=== PATIENT | female | born 1945 | race Caucasian/White ===

== ENCOUNTER 2017-08-08 10:08 | Emergency (ER) | payer OTHER, BC ==
[~2017-08-08] VITALS: Ht 175.3 cm; Wt 74.1 kg
[2017-08-08 10:59] LABS: HEMATOCRIT 33.6 % (36.0-46.0); MCH 29.3 PG (29.0-34.0); MCV 88.7 FL (83-99); MEAN PLAT.VOLUME 11.6 uM^3 (9.5-12.4); PLATELET COUNT 288 K/uL (156-360); RBC DIS.WIDTH-CV 12.1 % (11.8-14.6); RBC DIS.WIDTH-SD 39.3 % (39-53); RED BLOOD COUNT 3.79 M/uL (3.80-5.20); WHITE BLOOD COUNT 10.6 K/uL (4.1-10.2)
[2017-08-08 11:05] LABS: PROTHROMBIN TIME 58.2 SEC (10.2-12.9)
[2017-08-08 11:09] LABS: CHLORIDE 109 mEq/L (99-109); POTASSIUM 4.1 mEq/L (3.7-5.4); SODIUM 141 mEq/L (136-147)
[2017-08-08 11:11] LABS: GLUCOSE 112 mg/dL (70-99)
[2017-08-08 11:12] LABS: ANION GAP 9 MEQ/L (2-14)
[2017-08-08 11:15] LABS: GFR ESTIMATE (CALCULATED) > 59 mL/min/
[2017-08-08 11:16] LABS: UREA NITROGEN (BUN) 15 mg/dL (9-23)
[2017-08-08] MEDS ORDERED: COUMADIN2.5 MG PO (12:34)
[2017-08-08 13:55] VITALS: BP 112/70
== END 2017-08-08 13:57 | disposition home or self-care (01) ==
LOC: EME 10:08
DX: N93.9 Abnormal uterine and vaginal bleeding, unspecified (principal); T45.515A Adverse effect of anticoagulants, initial encounter; Z79.01 Long term (current) use of anticoagulants
CPT/HCPCS: 74176; 80048; 85027; 85610; 86850; 86900; 86901; 99281; 99284

== ENCOUNTER 2017-08-22 04:59 | Emergency (ER) | payer OTHER, BC ==
[~2017-08-22] VITALS: Ht 175.3 cm; Wt 75.0 kg
[~2017-08-22 04:59] MED LIST: COUMADIN2.5 MG PO
[2017-08-22 05:42] LABS: CHLORIDE 110 mEq/L (99-109); POTASSIUM 3.5 mEq/L (3.7-5.4); PROTHROMBIN TIME 10.7 SEC (10.2-12.9); PTT 24.1 SEC (25-37); SODIUM 143 mEq/L (136-147)
[2017-08-22 05:44] LABS: GLUCOSE 165 mg/dL (70-99)
[2017-08-22 05:45] LABS: ANION GAP 11 MEQ/L (2-14)
[2017-08-22 05:47] LABS: GFR ESTIMATE (CALCULATED) > 59 mL/min/
[2017-08-22 05:48] LABS: UREA NITROGEN (BUN) 20 mg/dL (9-23)
[2017-08-22 06:03] LABS: HEMATOCRIT 29.8 % (36.0-46.0); MCH 29.3 PG (29.0-34.0); MCHC 31.9 G/DL (30.0-36.0); MEAN PLAT.VOLUME 10.9 uM^3 (9.5-12.4); RBC DIS.WIDTH-CV 13.2 % (11.8-14.6); RBC DIS.WIDTH-SD 43.1 % (39-53); RED BLOOD COUNT 3.24 M/uL (3.80-5.20); WHITE BLOOD COUNT 18.2 K/uL (4.1-10.2)
[2017-08-22 06:04] LABS: PLATELET COUNT 445 K/uL (156-360)
[2017-08-22 06:29] VITALS: BP 111/77
== END 2017-08-22 06:39 | disposition home or self-care (01) ==
LOC: EME → EDBD 04:59 → EME 04:59
PROVIDERS: Emergency Medicine
DX: N93.9 Abnormal uterine and vaginal bleeding, unspecified (principal); D64.9 Anemia, unspecified; D72.829 Elevated white blood cell count, unspecified; Z79.01 Long term (current) use of anticoagulants; I10 Essential (primary) hypertension
CPT/HCPCS: 80048; 85027; 85610; 85730; 99281; 99283